=== PATIENT | female | born 1985 | race Caucasian/White ===

== ENCOUNTER 2018-04-17 12:46 | Outpatient (CLI) | END 2018-04-17 13:43 | disposition home or self-care (01) ==

== ENCOUNTER 2018-04-21 19:19 | Outpatient (CLI) | END 2018-04-22 00:55 | disposition home or self-care (01) ==

== ENCOUNTER 2018-05-05 20:15 | Inpatient (IN) | END 2018-05-08 14:10 | disposition home or self-care (01) | DRG 775 ==

== ENCOUNTER 2018-05-12 15:48 | Emergency (ER) | END 2018-05-12 19:15 | disposition home or self-care (01) ==